=== PATIENT | male | born 1930 | race Caucasian/White ===

== ENCOUNTER 2016-05-16 17:59 | Observation (INO) | payer OTHER ==
[~2016-05-16] VITALS: Ht 172.7 cm; Wt 77.9 kg
[~2016-05-16 17:59] MED LIST: ANTIVERT25 MG PO; CIPRO500 MG PO; DOCUSATE SODIU100 MG PO; ENDOCET 5-3251 EACH PO; FLOMAX0.4 MG PO; METFORMIN HCL500 MG PO; VALIUM2 MG PO; ZOFRAN4 MG PO
[2016-05-16 19:06] LABS: HEMATOCRIT 42.5 % (38.0-50.0); MCH 31.3 PG (29.0-34.0); MCHC 34.4 G/DL (30.0-36.0); MEAN PLAT.VOLUME 10.4 uM^3 (9.0-12.4); PLATELET COUNT 184 K/uL (156-360); RBC DIS.WIDTH-CV 13.7 % (11.8-14.6); RBC DIS.WIDTH-SD 44.7 % (39-53); RED BLOOD COUNT 4.67 M/uL (4.00-5.50); WHITE BLOOD COUNT 8.3 K/uL (4.1-10.2)
[2016-05-16 19:25] LABS: CHLORIDE 106 mEq/L (99-109); POTASSIUM 4.8 mEq/L (3.7-5.4); SODIUM 139 mEq/L (136-147)
[2016-05-16 19:27] LABS: GLUCOSE 118 mg/dL (70-99)
[2016-05-16 19:28] LABS: ANION GAP 9 MEQ/L (2-14)
[2016-05-16 19:31] LABS: GFR ESTIMATE (CALCULATED) > 59 mL/min/
[2016-05-16 19:32] LABS: UREA NITROGEN (BUN) 20 mg/dL (9-23)
[2016-05-16 19:33] LABS: TROP-I INTERPRETATION NEGATIVE; TROPONIN-I < 0.01 ng/mL (0.0-0.30)
[2016-05-16] MEDS ORDERED: TESSALON PERLE100 MG PO (20:58)
[2016-05-16] MEDS ORDERED: SERTRALINE HCL100 MG PO (21:42)
[2016-05-17] VITALS (9 sets, daily range): BP systolic 156–185; BP diastolic 72–89
[2016-05-17 07:08] LABS: HDL CHOLESTEROL 59 MG/DL (Desirable>=40); LDL CHOLESTEROL 124 mg/dL (Desirable<100); NON-HDL CHOLESTEROL 138 mg/dL (Desirable<160); TOTAL CHOLESTEROL 197 mg/dL (Desirable<200); TRIGLYCERIDES 69 MG/DL (Normal: <150)
[2016-05-17 07:54] LABS: Estimated Average Glucose 128 mg/dL (70-123); HEMOGLOBIN A1c (GLYCOHEMOGLOB) 6.1 % HGB (Below 5.7)
[2016-05-17 10:51] LABS: ANION GAP 11 MEQ/L (2-14); CHLORIDE 105 MEQ/L (99-109); GFR ESTIMATE (CALCULATED) > 59 mL/min/; GLUCOSE 135 mg/dL (70-99); POTASSIUM 4.4 MEQ/L (3.7-5.4); SODIUM 141 MEQ/L (136-147); UREA NITROGEN (BUN) 15 mg/dL (9-23)
[2016-05-17] MEDS ORDERED: PENLAC 8%6.6 ML TP (16:20)
[2016-05-17] MEDS ORDERED: ANTIVERT25 MG PO (16:55)
[2016-05-17] MEDS ORDERED: LISINOPRIL10 MG PO (16:55)
[2016-05-17] MEDS ORDERED: ATORVASTATIN CA40 MG PO (16:55)
[2016-05-17] MEDS ORDERED: ASPIR-LOW81 MG PO (16:55)
== END 2016-05-17 17:35 | disposition home or self-care (01) ==
LOC: EME 17:59 → EDOF 22:29 → 5WEST 22:29 → EDOF 22:29 → 5WEST 23:40
PROVIDERS: Emergency Medicine; Family Medicine
DX: R42 Dizziness and giddiness (principal); R26.9 Unspecified abnormalities of gait and mobility; R51 Headache; R03.0 Elevated blood-pressure reading, without diagnosis of hypertension; E11.9 Type 2 diabetes mellitus without complications; N40.0 Benign prostatic hyperplasia without lower urinary tract symptoms; Z83.3 Family history of diabetes mellitus; Z80.1 Family history of malignant neoplasm of trachea, bronchus and lung; Z79.84 Long term (current) use of oral hypoglycemic drugs
CPT/HCPCS: 70450; 70551; 80048; 80061; 83036; 83835 90; 84443; 84484; 85027; 93005; 93880; 99281; 99285; G0378; G8978 GP CH; G8979 GP CH; G8980 GP CH; J1650; J7030

== ENCOUNTER 2017-04-01 14:28 | Emergency (ER) | payer OTHER ==
[~2017-04-01] VITALS: Ht 172.7 cm; Wt 80.1 kg
[~2017-04-01 14:28] MED LIST changes: +ASPIR-LOW81 MG PO; +ATORVASTATIN CA40 MG PO; +LISINOPRIL10 MG PO; +PENLAC 8%6.6 ML TP; +SERTRALINE HCL100 MG PO; +TESSALON PERLE100 MG PO
[2017-04-01 15:14] LABS: HEMATOCRIT 39.3 % (38.0-50.0); MCH 31.5 PG (29.0-34.0); MCHC 33.3 G/DL (30.0-36.0); MCV 94.5 FL (86-99); MEAN PLAT.VOLUME 10.9 uM^3 (9.0-12.4); PLATELET COUNT 165 K/uL (156-360); RBC DIS.WIDTH-CV 14.5 % (11.8-14.6); RBC DIS.WIDTH-SD 50.1 % (39-53); RED BLOOD COUNT 4.16 M/uL (4.00-5.50); WHITE BLOOD COUNT 10.7 K/uL (4.1-10.2)
[2017-04-01 15:35] LABS: CHLORIDE 102 mEq/L (99-109); POTASSIUM 4.5 mEq/L (3.7-5.4); SODIUM 137 mEq/L (136-147)
[2017-04-01 15:37] LABS: GLUCOSE 114 mg/dL (70-99)
[2017-04-01 15:38] LABS: ANION GAP 9 MEQ/L (2-14)
[2017-04-01 15:39] LABS: TOTAL BILIRUBIN 0.6 mg/dL (0.0-1.0)
[2017-04-01 15:41] LABS: ALKALINE PHOSPHATASE 49 IU/L (3-129); GFR ESTIMATE (CALCULATED) > 59 mL/min/ (58.99-99999)
[2017-04-01 15:42] LABS: DIRECT BILIRUBIN 0.3 mg/dL (0.0-0.3); UREA NITROGEN (BUN) 16 mg/dL (9-23)
[2017-04-01 17:05] LABS: ADD MIUA? NO; BILIRUBIN NEGATIVE; BLOOD NEGATIVE; COLOR YELLOW ((YELLOW)); GLUCOSE (STRIP) NEGATIVE; KETONES NEGATIVE; LEUKOCYTES NEGATIVE; NITRITE NEGATIVE; PROTEIN (STRIP) NEGATIVE; SPECIFIC GRAVITY 1.035 (1.000-1.030); UCUL ADDED? NO; UROBILINOGEN 0.2 MG/DL (0.2-1.0)
[2017-04-01] MEDS ORDERED: CIPRO500 MG PO (18:31)
[2017-04-01] MEDS ORDERED: FLAGYL500 MG PO (18:31)
[2017-04-01 18:50] VITALS: BP 147/71
== END 2017-04-01 18:54 | disposition home or self-care (01) ==
LOC: EME 14:28
PROVIDERS: Physician Assistant Medical
DX: K57.92 Diverticulitis of intestine, part unspecified, without perforation or abscess without bleeding (principal); Z87.442 Personal history of urinary calculi; I10 Essential (primary) hypertension; F41.9 Anxiety disorder, unspecified; Z79.84 Long term (current) use of oral hypoglycemic drugs
CPT/HCPCS: 74000; 74177; 80048; 80076; 81003; 85027; 99281; 99285; J7030

== ENCOUNTER → 2017-11-25 | Outpatient (CLI) | payer MEDICARE, OTHER ==
[~2017-11-25] MED LIST changes: +FLAGYL500 MG PO
== END | disposition home or self-care (01) ==
LOC: CDC 15:20
DX: Z01.810 Encounter for preprocedural cardiovascular examination (principal); G56.02 Carpal tunnel syndrome, left upper limb
CPT/HCPCS: 93000